=== PATIENT | female | born 1975 | race African-American/Black ===

== ENCOUNTER 2017-03-22 18:37 | Emergency (ER) | payer SELFPAY ==
[2017-03-22] MEDS ORDERED: ONDANSETRON HCL IV 4 MG/2 ML VIAL IV ONE (18:51)
[2017-03-22] MEDS ORDERED: 0.9 % SODIUM CHLORIDE 1,000 ML BAG IV ONE (18:51)
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
[2017-03-22] MEDS ORDERED: HYDROMORPHONE HCL 1 MG/ML CPJ IVP ONE ×2 (18:59→19:53)
[2017-03-22 19:21] LABS: BASO % 0.3 % (0-6); EOS % 1.9 % (0-6); GRAN % 40.1 % (47-80); HEMATOCRIT 41.8 % (35.0-47.0); HEMOGLOBIN 13.5 gm/dl (11.6-16.0); LYMPH % 49.6 % (16-45); MEAN CELL VOLUME 83.1 fl (81-97); MEAN CORPUSCULAR HEMOGLOBIN 26.8 pg (27-33); MEAN CORPUSCULAR HGB CONC 32.3 g/dl (32-36); MEAN PLATELET VOLUME 10.1 fl (7.4-10.4); MONO % 8.1 % (0-9); PLATELET COUNT 316 K/uL (130-400); RED BLOOD COUNT 5.03 M/uL (3.80-5.40); RED CELL DISTRIBUTION WIDTH 16.1 % (11.5-14.5); WHITE BLOOD COUNT W/O DIFF 7.3 K/uL (4.2-12.2)
[2017-03-22 19:25] LABS: ALB/GLOB RATIO 1.3 (1.1-1.8); ALKALINE PHOSPHATASE 132 U/L (38-126); ALT/SGPT 20 U/L (9-52); ANION GAP 13.4 (7-16); AST/SGOT 24 U/L (14-36); BILIRUBIN,TOTAL 0.45 mg/dL (0.2-1.3); BLOOD UREA NITROGEN 17 mg/dL (7-17); CARBON DIOXIDE 21.6 mmol/L (22-30); CREATININE 0.9 mg/dL (0.52-1.04); EST GLOMERULAR FILTRATION RATE > 60 ml/min; GLUCOSE,RANDOM 96 mg/dL (70-110); LIPASE 180 U/L (23-300); TOTAL PROTEIN 8.8 gm/dL (6.3-8.2)
[2017-03-22 19:25] LABS: URINE APPEARANCE CLEAR; URINE BILIRUBIN NEGATIVE (NEGATIVE); URINE BLOOD SMALL (NEGATIVE); URINE COLOR YELLOW; URINE GLUCOSE (UA) NEGATIVE (NEGATIVE); URINE KETONE NEGATIVE (NEGATIVE); URINE LEUKOCYTE ESTERASE SMALL (NEGATIVE); URINE NITRITE POSITIVE (NEGATIVE); URINE PROTEIN NEGATIVE (NEGATIVE); URINE UROBILINOGEN 0.2 E.U./dL (0.20 - 1.00)
[2017-03-22 19:41] LABS: URINE BACTERIA 4+; URINE WBC 21 - 35 (0-2/hpf)
[2017-03-22] MEDS ORDERED: 0.9 % SODIUM CHLORIDE 1000ML 1,000 ML IV ONE (19:54)
[2017-03-22] MEDS ORDERED: HYDROCODONE/APAP 5/325MG TABLET PO ONE (21:41)
[2017-03-22] MEDS ORDERED: CIPROFLOXACIN HCL 500 MG TABLET PO ONE (21:41)
[2017-03-22] MEDS ORDERED: METRONIDAZOLE 250 MG TABLET PO ONE (21:41)
== END 2017-03-22 22:03 | disposition home or self-care (01) ==
LOC: ER 18:37
DX: R10.10 Upper abdominal pain, unspecified (principal); R11.2 Nausea with vomiting, unspecified; R35.0 Frequency of micturition
CPT/HCPCS: 99284 ×2; 96376; 96374; 96375; 96361; 83605; 83690; 85025; 80053; 81001; 81025; 74177; Q9967; J2405; J1170; J7030

== ENCOUNTER 2017-04-08 17:52 | Emergency (ER) | payer SELFPAY ==
[2017-04-08] MEDS ORDERED: ONDANSETRON HCL IV 4 MG/2 ML VIAL IVP ONE (18:12)
[2017-04-08] MEDS ORDERED: HYDROMORPHONE HCL 1 MG/ML CPJ IVP ONE (18:14)
[2017-04-08] MEDS ORDERED: 0.9 % SODIUM CHLORIDE 1000ML 1,000 ML IV SCH (18:15)
--- NOTE | 2017-04-08 18:18 | Emergency Department Record ---
History of Present Illness - General Chief complaint: Flank Pain Stated complaint: ABD/BACK/GROIN PAIN Time Seen by Provider: 04/08/17 18:03 Source: Patient Mode of Arrival: Ambulatory Limitations: No limitations - History of Present Illness Initial comments: 41 yo female presents to ED with a CC of RLQ pain, right sided flank pain for the past 2 days. Patient reports similar symptoms with previous kidney stones, denies vomiting, fevers, chills, or urinary symptoms today. Patient does report history of pancreatitis as well, reports previous AYAN and laparoscopy x 6 for endometriosis. Patient denies pelvic symptoms. MD Complaint: Other Onset/Timin -: Days(s) Location: RLQ Severity: Severe Quality: Sharp Consistency: Constant Improves with: None Patient : No Associated Symptoms: Abdominal pain - Related Data Home Medications Medication Instructions Recorded Confirmed Last Taken Amitriptyline HCl 25 mg PO QHS 03/22/17 04/08/17 04/08/17 Estradiol [Estrace] 2 mg PO DAILY 03/22/17 04/08/17 04/08/17 Estrogens, Conjugated [Premarin] 1.25 mg PO DAILY 03/22/17 04/08/17 04/08/17 Gabapentin [Neurontin] 600 mg PO TID 03/22/17 04/08/17 04/08/17 Allergies Allergy/AdvReac Type Severity Reaction Status Date / Time butorphanol Allergy HIVES Verified 03/22/17 18:56 butorphanol tartrate Allergy HIVES Verified 03/22/17 18:56 [From Stadol] cyclobenzaprine Allergy HIVES Verified 03/22/17 18:56 diphenhydramine HCl Allergy HIVES Verified 03/22/17 18:56 [From Benadryl] droperidol Allergy HIVES Verified 03/22/17 18:56 fentanyl Allergy HIVES Verified 03/22/17 18:56 ketorolac tromethamine Allergy HIVES Verified 03/22/17 18:56 [From Toradol] meperidine HCl [From Demerol] Allergy HIVES Verified 03/22/17 18:56 metoclopramide Allergy HIVES Verified 03/22/17 18:56 metoclopramide HCl Allergy HIVES Verified 03/22/17 18:56 [From Reglan] morphine Allergy HIVES Verified 03/22/17 18:56 nalbuphine HCl [From Nubain] Allergy HIVES Verified 03/22/17 18:56 prochlorperazine Allergy HIVES Verified 03/22/17 18:56 [From Compazine] prochlorperazine edisylate Allergy HIVES Verified 03/22/17 18:56 [From Compazine] prochlorperazine maleate Allergy HIVES Verified 03/22/17 18:56 [From Compazine] Travel Screening - Travel/Exposure Within Last 30 Days Have you traveled within the last 30 days?: No - Travel/Exposure Within Last Year Have you traveled outside the [place] in the last year?: No - Additonal Travel Details Have you been exposed to anyone with a communicable illness?: No - Travel Symptoms Symptom Screening: None Review of Systems Constitutional: Denies: Chills, Fever, Malaise, Night sweats Eyes: Denies: Eye discharge, Eye pain ENT: Denies: Congestion, Ear pain, Epistaxis Respiratory: Denies: Cough, Dyspnea Cardiovascular: Denies: Chest pain, Dyspnea on exertion Endocrine: Denies: Fatigue, Heat or cold intolerance Gastrointestinal: Reports: Abdominal pain. Denies: Constipation, Diarrhea, Nausea, Vomiting Genitourinary: Denies: Dysuria, Hematuria, Incontinence, Retention Musculoskeletal: Reports: Back pain. Denies: Arthralgia, Gout, Joint swelling Skin: Denies: Bruising, Change in color Neurological: Denies: Abnormal gait, Confusion, Headache Psychiatric: Denies: Anxiety Hematological/Lymphatic: Denies: Anemia, Blood Clots Past Medical History - SOCIAL HISTORY Smoking Status: Current every day smoker Alcohol Use: None Drug Use: Occassional Drug Use Detail:: Marijuana - RESPIRATORY Hx Respiratory Disorders: No - CARDIOVASCULAR Hx Cardio Disorders: No - NEURO Hx Neuro Disorders: Yes Hx Headaches: Yes - GI Hx GI Disorders: Yes Hx Irritable Bowel: Yes Hx Pancreatitis: Yes Comment:: ileus - Hx Genitourinary Disorders: Yes Hx Kidney Stones: Yes Hx UTI: Yes Comment:: endormetreosis, chronic pelvic pain, interstitial cystitis - ENDOCRINE Hx Endocrine Disorders: Yes Hx Thyroid Disease: Yes - MUSCULOSKELETAL Hx Musculoskeletal Disorders: Yes Comment:: cnronic pain syndrome - PSYCH Hx Psych Problems: No - HEMATOLOGY/ONCOLOGY Hx Hematology/Oncology Disorders: No Family Medical History Any Significant Family History?: No Hx Heart Disease: Father Physical Exam - General General Appearance: Alert, Oriented x3, Cooperative, Moderate distress (due to her pain symptoms, tearful on examination) Limitations: No limitations - Head Head exam: Atraumatic, Normocephalic, Normal inspection Head exam detail: negative: Abrasion, Contusion, Hernandez's sign, General tenderness, Hematoma, Laceration - Eye Eye exam: Normal appearance. negative: Conjunctival injection, Periorbital swelling, Periorbital tenderness, Scleral icterus - ENT Ear exam: negative: Auricular hematoma, Auricular trauma Nasal Exam: negative: Active bleeding, Discharge, Dried blood, Foreign body Mouth exam: negative: Drooling, Laceration, Muffled voice, Tongue elevation - Neck Neck exam: Normal inspection. negative: Meningismus, Tenderness - Respiratory Respiratory exam: Normal lung sounds bilaterally. negative: Respiratory distress, Rhonchi, Stridor, Wheezes - Cardiovascular Cardiovascular Exam: Regular rate, Normal rhythm, Normal heart sounds - GI/Abdominal GI/Abdominal exam: Soft. negative: Organomegaly, Rebound, Rigid - Rectal Rectal exam: Deferred - exam: Deferred - Extremities Extremities exam: Normal inspection. negative: Calf tenderness, Pedal edema, Tenderness - Back Back exam: Denies: CVA tenderness (R), CVA tenderness (L) - Neurological Neurological exam: Alert, Normal gait, Oriented X3 - Psychiatric Psychiatric exam: Normal affect, Normal mood - Skin Skin exam: Normal color. negative: Abrasion Type of lesion: negative: abrasion Course Vital Signs 04/08/17 17:57 Temperature 98.5 F Pulse Rate 128 H Respiratory 22 Rate Blood Pressure 126/73 Pulse Ox 99 - Reevaluation(s) Reevaluation #1: 04/08/17 18:19 CT Abdomen and Pelvis reviewed from 03/22/17, however due to the patient's clinical distress and possibility of infected ureteral stone vs. appendicitis, benefit of excluding these processes outweighs the risk of radiation exposure. CT imaging ordered to exclude these acute processes. Reevaluation #2: 04/08/17 18:45 Labs reviewed and are grossly unremarkable for an acute process, UA pending at this time. Reevaluation #3: 04/08/17 19:12 Patient is back from CT imaging, awaiting interpretation. Levsin ordered for ongoing pain symptoms, patient declined stating "I don't know what that is, and I have had a lot of reactions to medications and I don't know what that is". Will await CT imaging interpretation for further disposition. Reevaluation #4: 04/08/17 19:42 Patient reassessed, reports that she would like her IV taken out "unless you are giving me more Dilaudid". Patient was updated on all laboratory and UA results, CT pending at this time. Call placed to the radiologist x 4 without response. Patient reports that she would prefer to go home at this time and that we call her with her results. Will release the patient AMA as her CT imaging results are pending. Reevaluation #5: 04/08/17 20:04 CT Abdomen and Pelvis: Bilateral intra-renal calculi without evidence for ureteral calculi or obstruction, negative appendix, small abdominal wall hernia as before. Patient was discharged AMA per her wishes, would not sign AMA for. Will contact patient for her results. Medical Decision Making - Lab Data Result diagrams: 04/08/17 18:14 04/08/17 18:14 Disposition Disposition: Other Clinical Impression: Abdominal pain Qualifiers: Abdominal location: right lower quadrant Qualified Code(s): R10.31 - Right lower quadrant pain Disposition: Against Medical Advice Condition: (2) Stable Instructions: Acute Abdominal Pain (ED) Additional Instructions: Return to ED if your symptoms worsen or if you have any concerns. Return to ED if you would would like to complete your abdominal pain evaluation. Follow-up with your family doctor in in 1-3 days without fail. Forms: Patient Portal Access Time of Disposition: 19:45
[2017-04-08 18:28] LABS: BASO % 0.2 % (0-6); EOS % 1.9 % (0-6); GRAN % 43.1 % (47-80); HEMATOCRIT 38.8 % (35.0-47.0); HEMOGLOBIN 12.2 gm/dl (11.6-16.0); LYMPH % 42.9 % (16-45); MEAN CELL VOLUME 85.5 fl (81-97); MEAN CORPUSCULAR HEMOGLOBIN 26.9 pg (27-33); MEAN CORPUSCULAR HGB CONC 31.4 g/dl (32-36); MEAN PLATELET VOLUME 10.6 fl (7.4-10.4); MONO % 11.9 % (0-9); PLATELET COUNT 315 K/uL (130-400); RED BLOOD COUNT 4.54 M/uL (3.80-5.40); RED CELL DISTRIBUTION WIDTH 16.8 % (11.5-14.5); WHITE BLOOD COUNT W/O DIFF 6.3 K/uL (4.2-12.2)
[2017-04-08 18:40] LABS: ALB/GLOB RATIO 1.6 (1.1-1.8); ALBUMIN 4.9 gm/dL (3.5-5.0); ALKALINE PHOSPHATASE 84 U/L (38-126); ALT/SGPT 16 U/L (9-52); ANION GAP 11.6 (7-16); AST/SGOT 27 U/L (14-36); BILIRUBIN,TOTAL 0.73 mg/dL (0.2-1.3); BLOOD UREA NITROGEN 16 mg/dL (7-17); CARBON DIOXIDE 23.4 mmol/L (22-30); CREATININE 0.8 mg/dL (0.52-1.04); EST GLOMERULAR FILTRATION RATE > 60 ml/min; GLUCOSE,RANDOM 98 mg/dL (70-110); LIPASE 279 U/L (23-300)
[2017-04-08] MEDS ORDERED: HYOSCYAMINE SULFATE ODT 0.125 MG TAB.SUBL SL ONE (19:02)
[2017-04-08 19:24] LABS: URINE APPEARANCE CLEAR; URINE BILIRUBIN NEGATIVE (NEGATIVE); URINE BLOOD NEGATIVE (NEGATIVE); URINE COLOR YELLOW; URINE GLUCOSE (UA) NEGATIVE (NEGATIVE); URINE KETONE NEGATIVE (NEGATIVE); URINE LEUKOCYTE ESTERASE NEGATIVE (NEGATIVE); URINE NITRITE NEGATIVE (NEGATIVE); URINE PROTEIN NEGATIVE (NEGATIVE); URINE UROBILINOGEN 0.2 E.U./dL (0.20 - 1.00)
[2017-04-08 19:26] LABS: HCG,QUALITATIVE URINE NEGATIVE (NEGATIVE)
== END 2017-04-08 19:52 | disposition left against medical advice (07) ==
LOC: ER 17:52
DX: R10.31 Right lower quadrant pain (principal); N20.0 Calculus of kidney; Z87.442 Personal history of urinary calculi
CPT/HCPCS: 99284 ×2; 96374; 96375; 83690; 85025; 80053; 81003; 81025; 74176; J2405; J1170; J7030